=== PATIENT | female | born 1945 | race Caucasian/White ===

== ENCOUNTER 2018-08-28 14:35 | Inpatient (IN) ==
[2018-08-28] MEDS ORDERED: Dextrose Gel 15 GM/37.5 ML TUBE PO PRN ×2 (17:32)
[2018-08-28] MEDS ORDERED: *HR* Dextrose 50 % in Water (Syg) 50 ML SYRINGE IVP PRN (17:32)
[2018-08-28] MEDS ORDERED: D5% in Water 1,000 ML IVC PRN (17:32)
[2018-08-28] MEDS ORDERED: Mag Hydrox/Al Hydrox/Simeth 30 ML UDC PO PRN (17:32)
[2018-08-28] MEDS: Insulin LISPRO 300 UNITS/3 ML VIAL SQ SCH (20:22)
[2018-08-29 05:44] LABS: Basophils % 0.4 %; Eosinophils # 0.3 K/mcL (0.0-0.6); Eosinophils % 2.8 %; Hematocrit 30.8 % (35.3-44.9); Hemoglobin 9.7 g/dL (11.5-15.4); Immature Granulocytes % 1.8 % (0-4); Lymphocytes # 1.3 K/mcL (0.6-4.6); Lymphocytes % 14.4 %; Mean Corpuscular HGB Conc 31.5 g/dL (31.6-35.5); Mean Corpuscular Hemoglobin 30.1 pg (28.0-33.3); Mean Corpuscular Volume 95.7 fL (83.0-100.0); Mean Platelet Volume 9.1 fL (9.4-12.4); Monocytes # 0.6 K/mcL (0.0-1.3); Monocytes % 6.3 %; Neutrophils # 6.9 K/mcL (1.6-8.9); Nucleated Red Blood Cells 0.2 /100 WBC (0); Platelet Count 397 K/mcL (140-400); Red Blood Count 3.22 M/mcL (3.82-4.97); Segmented Neutrophils % 74.3 %
[2018-08-29 05:58] LABS: Alanine Aminotransferase 32 Units/L (7-52); Albumin 3.2 g/dL (3.5-5.7); Alkaline Phosphatase 67 Units/L (34-104); Aspartate Amino Transferase 33 Units/L (13-39); BUN/Creatinine Ratio 16 (6-26); Bilirubin,Total 0.6 mg/dL (0.3-1.0); Blood Urea Nitrogen 13 mg/dL (8-23); Calcium 8.8 mg/dL (8.6-10.3); Carbon Dioxide 28 mEq/L (23-29); Chloride 100 mEq/L (98-107); Globulin 3.1 g/dL (2.4-3.5); Glucose 169 mg/dL (70-105); Osmolality,Calculated 278 (280-300); Potassium 4.6 mEq/L (3.5-5.1); Sodium 132 mEq/L (136-145); Total Protein 6.3 g/dL (6.4-8.9); eGFR For Non-African Americans > 60 (> 60)
[2018-08-29] MEDS: *HR* Enoxaparin 40 MG/0.4 ML SYRINGE SQ SCH (06:00)
[2018-08-29] MEDS: Cyanocobalamin (B-12) 1,000 MCG TABLET PO SCH (08:07)
[2018-08-29] MEDS: Multivit/Ca/Min/Fe/FA 1 TAB TABLET PO SCH (08:07)
[2018-08-29] MEDS: *HR* Amiodarone 200 MG TABLET PO SCH (08:07)
[2018-08-29] MEDS: Loratadine 10 MG TABLET PO SCH (08:08)
[2018-08-29] MEDS: Furosemide 40 MG TABLET PO SCH (08:09)
[2018-08-29] MEDS: Aspirin 81 MG TAB.CHEW PO SCH (08:09)
[2018-08-29] MEDS: Insulin LISPRO 300 UNITS/3 ML VIAL SQ SCH ×4 (08:14→21:03)
--- NOTE | 2018-08-29 15:03 | Internal Med History&Physical ---
Addendum entered and electronically signed by Ad March MD 08/30/18 12:49: I have personally performed a face to face evaluation on this patient. I have r eviewed and agree with the care plan. History and Exam by me shows: The patient was evaluated by me yesterday but the note was not complete. This documentation is being completed today for that reason. Patient is here after CABG and has pain in her left upper back or lower chest or both. She is noting that she has had pain for a long time but this seems more intense and different. We talked about the possibility that her movement is changed because of her recent surgery and that we will make sure she does not have any pleural effusion, etc. This will be with chest x-ray today. She admits to 6 days of constipation and feels like she needs to move, soon. We talked about use of MiraLAX and/or other laxatives if no results. Past medical history, social history, family history reviewed with patient. Patient has no complaint of chest discomfort, dyspnea, orthopnea, breathing problems, palpitations, nausea or vomiting, constipation or diarrhea, other changes in bowel habits, heartburn, difficulty with urination, kidney problems or kidney stones, fevers chills or sweats, rash or itching, seizures, headache or lightheadedness, heat or cold intolerance, blood problems or anemia, or other new complaints, except as mentioned above. Review of systems is otherwise negative. Examination: (Except as mentioned above): General: In no apparent distress, alert and oriented 3. Head: Atraumatic and normocephalic. Eyes: Extraocular muscles are intact, pupils equal round and reactive to light and accommodation. Sclerae anicteric. Ears: External ears are normal to inspection and hearing is grossly normal. Nose: Patent without lesion noted. Mouth: No intraoral lesions seen. Dentition is unremarkable. Neck: Supple with trachea midline. There is no thyromegaly or adenopathy and carotids are 2+ without bruit heard. Respiratory: No use of accessory muscles. Lungs are clear throughout. Normal airflow. Cardiovascular: Regular rate and rhythm without murmur appreciated. Abdomen: Bowel sounds are normal. No hepatosplenomegaly masses or tenderness. Obese and therefore difficult to palpate deeply. Extremities: No cyanosis clubbing or edema. Neurological: A and O 3. Cranial nerves II through XII are intact. No focal deficits and no abnormal movements or postures. Skin: Warm and non-diaphoretic with no lesions noted. Breasts, pelvic and rectal: Not examined. I reviewed her care with nursing and we will adjust medications. She is to have rehabilitation strengthening with therapies as planned. Original Note: Date of Encounter: 08/29/18 Time of Encounter: 15:01 Assessment and Plan (1) S/P CABG x 2 Current visit: Yes Status: Acute PT and OT to eval and treat. Maintaining oxygen sets on room air. Denies shortness of breath or chest pain. Continue current medication. Follow up with pigment and lacquer mixer as scheduled. (2) Hyperlipidemia Current visit: Yes Status: Acute Continue Statin Qualifiers: Hyperlipidemia type: unspecified Qualified Code(s): E78.5 - Hyperlipidemia, unspecified (3) Hypertension Current visit: Yes Status: Acute Controlled with current medication. Monitor blood pressure. Qualifiers: Hypertension type: essential hypertension Qualified Code(s): I10 - Essential (primary) hypertension (4) Diabetes type 2, controlled Current visit: Yes Status: Acute Controlled with sliding scale insulin. Continue to monitor fingerstick blood sugar. Will adjust medicines as necessary. Qualifiers: Diabetes mellitus alf insulin use: with alf use Diabetes mellitus complication status: with unspecified complications Qualified Code(s): E11.8 - Type 2 diabetes mellitus with unspecified complications; Z79.4 - [facility] (current) use of insulin Internal Medicine - H&P: HPI Admitted From: Hospital to Hospital Transfer Plans for Post Hospital Care: Home History of present illness: Ms. Day is a 73 year old female admitted to rehab unit for deconditioning from [facility] status post CABG. patient denies shortness of breath, chest pain, nausea vomiting or diarrhea, fever chills. States appetite and hydration remain normal. Past medical history includes CVA, hypertension, hypercholesterolemia, diabetes type II, melanoma, STEMI, CAD and obesity. Past Med Surg Social Fam HX - Past Medical History Medical history: CVA, diabetes, hyperlipidemia, hypertension, other Additional medical history: [place] bone marrow transfusion - Past Surgical History Surgical History: appendectomy, cholecystectomy, coronary bypass (CABG) Additional surgical history: tubal 1973 - Social History Smoking Status: Never smoker Smokeless Tobacco Status: No Alcohol use: none Drug use: other - Family History Mother Adopted: Yes Living Status: Hx Family Reproductive Disorders: Yes (cancer) Internal Medicine - H&P: Meds Aspirin 81 mg PO DAILY 08/21/15 [History] Clopidogrel [Plavix] 75 mg PO DAILY 08/21/15 [History] Cyanocobalamin (B-12) [Vitamin B12] 500 mcg PO DAILY 08/21/15 [History] Lisinopril 2.5 mg PO DAILY 08/21/15 [History] Simvastatin [Zocor] 40 mg PO HS 08/21/15 [History] Acetaminophen [Tylenol] 325 mg PO Q6HR PRN 08/28/18 [History] Amiodarone [Cordarone] 200 mg PO DAILY 08/28/18 [History] Docusate [Colace] 100 mg PO BID 08/28/18 [History] Furosemide [Lasix] 40 mg PO DAILY 08/28/18 [History] Loratadine [Claritin] 10 mg PO DAILY 08/28/18 [History] Multivitamin [Daily Multiple Vitamin] 1 each PO DAILY 08/28/18 [History] Pantoprazole Sodium [Protonix] 40 mg PO DAILY 08/28/18 [History] Potassium Chloride [K-Tab ER] 20 meq PO DAILY 08/28/18 [History] Simvastatin [Zocor] 80 mg PO HS 08/28/18 [History] Metformin HCl [Glucophage] 1,000 mg PO BID 08/29/18 [History] SitaGLIPtin [Januvia] 100 mg PO DAILY 08/29/18 [History] Allergy/AdvReac Type Severity Reaction Status Date / Time acetaminophen [From Percocet] AdvReac See Verified 08/21/15 15:59 Comments codeine AdvReac See Verified 08/21/15 15:59 Comments oxycodone [From Percocet] AdvReac See Verified 08/21/15 15:59 Comments All Systems PM: A 10-system review of systems was performed and is negative for pertinent findings except as documented above in the HPI. - Constitutional Vitals: Temp Pulse Resp BP Pulse Ox 98.5 F 97 16 96/56 97 08/29/18 11:00 08/29/18 11:00 08/29/18 11:00 08/29/18 12:28 08/29/18 11:00 General appearance: Present: cooperative, A&O X 3, pleasant, no acute distress, answers questions appropriately - Head Head exam: Present: atraumatic, normocephalic - Eye Eye exam: Present: PERRL, conjuntiva pink, sclera anicteric Pupils: Present: PERRL - Neck Neck exam general surgery: Present: supple, trachea midline. Absent: lymphadenopathy - Respiratory Respiratory exam: Present: CTAB. Absent: accessory muscle use, rales, rhonchi, wheezes - Cardiovascular Cardiovascular exam: Present: RRR, +S1, +S2. Absent: diastolic murmur, gallop, rubs, systolic murmur - GI/Abdominal GI/Abdominal exam: Present: normal bowel sounds, soft, no peritoneal signs. Absent: distended, tenderness - Extremities Exam Extremities exam: Present: warm, radial pulses palpable and symmetrical. Absent: calf tenderness, cyanotic, pedal edema - Neurological Exam Neurological exam: Present: CN II-XII intact, oriented X3, no focal deficits. A bsent: pronater drift, facial droop, speech deficit - Skin Skin exam: Present: dry, intact Internal Med - H&P Results - Labs CBC & Chem 7: 08/29/18 05:30 08/29/18 05:30 Labs: Short CBC 08/29/18 Range/Units 05:30 WBC 9.3 (4.3-11.1) K/mcL Hgb 9.7 L (11.5-15.4) g/dL Hct 30.8 L (35.3-44.9) % Plt Count 397 (140-400) K/mcL Neutrophils # 6.9 (1.6-8.9) K/mcL BMP 08/29/18 05:30 Sodium 132 L Potassium 4.6 Chloride 100 Carbon Dioxide 28 BUN 13 Creatinine 0.81 Glucose 169 H Calcium 8.8 Liver Function 08/29/18 Range/Units 05:30 Total Bilirubin 0.6 (0.3-1.0) mg/dL AST 33 (13-39) Units/L ALT 32 (7-52) Units/L Alkaline Phosphatase 67 (34-104) Units/L Albumin 3.2 L (3.5-5.7) g/dL
[2018-08-29] MEDS: *HR* Metformin 500 MG TABLET PO SCH (16:53)
[2018-08-29] MEDS: Acetaminophen 325 MG TABLET PO PRN (21:03)
[2018-08-30] MEDS: Acetaminophen 325 MG TABLET PO PRN ×2 (06:15→19:37)
[2018-08-30] MEDS: *HR* Enoxaparin 40 MG/0.4 ML SYRINGE SQ SCH (06:15)
[2018-08-30] MEDS: Insulin LISPRO 300 UNITS/3 ML VIAL SQ SCH ×4 (08:13→20:41)
[2018-08-30] MEDS: Aspirin 81 MG TAB.CHEW PO SCH (08:14)
[2018-08-30] MEDS: *HR* Amiodarone 200 MG TABLET PO SCH (08:14)
[2018-08-30] MEDS: Multivit/Ca/Min/Fe/FA 1 TAB TABLET PO SCH (08:14)
[2018-08-30] MEDS: Furosemide 40 MG TABLET PO SCH (08:15)
[2018-08-30] MEDS: Cyanocobalamin (B-12) 1,000 MCG TABLET PO SCH (08:15)
[2018-08-30] MEDS: Loratadine 10 MG TABLET PO SCH (08:15)
[2018-08-30] MEDS: *HR* Metformin 500 MG TABLET PO SCH ×2 (08:15→17:30)
--- NOTE | 2018-08-30 14:21 | Internal Med Progress Note ---
Addendum entered and electronically signed by Ad March MD 08/30/18 15:23: Patient is busy with other providers and/or in therapies so I am unable to see her today. Original Note: Date of Encounter: 08/30/18 Time of Encounter: 14:18 - Assessment and plan (1) S/P CABG x 2 Current Visit: Yes Status: Acute Assessment and plan: Continue PT and OT. Follow up with cardiology as scheduled. (2) Hypertension Current Visit: Yes Status: Acute Assessment and plan: Controlled with current medication. Monitor blood pressure. Qualifiers: Hypertension type: essential hypertension Qualified Code(s): I10 - Essential (primary) hypertension (3) Diabetes type 2, controlled Current Visit: Yes Status: Acute Assessment and plan: controlled with current medication. Monitor fingerstick blood sugar. Will adjust medicines as necessary. Qualifiers: Diabetes mellitus fci insulin use: with terminal block assembler use Diabetes mellitus complication status: with unspecified complications Qualified Code(s): E11.8 - Type 2 diabetes mellitus with unspecified complications; Z79.4 - [facility] (current) use of insulin - Time Spent With Patient less than 15 minutes - Subjective Interval history: Patient participating well with therapy. Continues to transfer with standby to contact card assist. Following external precautions. Ambulating hundred and 50 feet with standby assist with 4 wheeled walker with therapy. Bowels did start to move today. Patient denies any discomfort, shortness of breath, chest pain, fever, chills, nausea vomiting or diarrhea. - Constitutional Vitals: Temp Pulse Resp BP Pulse Ox 98.4 F 93 15 122/77 97 08/30/18 07:20 08/30/18 07:20 08/30/18 07:20 08/30/18 07:20 08/30/18 07:20 General appearance: Present: cooperative, A&O X 3, pleasant, no acute distress, answers questions appropriately - Head Head exam: Present: atraumatic, normocephalic - Eye Eye exam: Present: PERRL, conjuntiva pink, sclera anicteric Pupils: Present: PERRL - Neck Neck exam general surgery: Present: supple, trachea midline. Absent: lymphadenopathy - Respiratory Respiratory exam: Present: CTAB. Absent: accessory muscle use, rales, rhonchi, wheezes - Cardiovascular Cardiovascular exam: Present: RRR, +S1, +S2. Absent: diastolic murmur, gallop, rubs, systolic murmur - GI/Abdominal GI/Abdominal exam: Present: normal bowel sounds, soft, no peritoneal signs. Absent: distended, tenderness - Extremities Exam Extremities exam: Present: warm, radial pulses palpable and symmetrical. Absent: calf tenderness, cyanotic, pedal edema - Neurological Exam Neurological exam: Present: CN II-XII intact, oriented X3, no focal deficits. Absent: pronater drift, facial droop, speech deficit - Skin Skin exam: Present: dry, intact Internal Medicine: Result - Labs CBC & Chem 7: 08/29/18 05:30 08/29/18 05:30 - Impressions Impressions Chest X-Ray 08/29/18 13:58 IMPRESSION: No acute cardiopulmonary process. D/ / Darryl Graham MD / Darryl Graham MD Interpreting Provider: Darryl Graham MD Consult Discharge Plan - Plan Referrals: Nii Landaverde [Other]
[2018-08-31] MEDS: Acetaminophen 325 MG TABLET PO PRN ×3 (04:51→21:38)
[2018-08-31] MEDS: *HR* Enoxaparin 40 MG/0.4 ML SYRINGE SQ SCH (04:52)
[2018-08-31] MEDS: Furosemide 40 MG TABLET PO SCH (08:40)
[2018-08-31] MEDS: *HR* Amiodarone 200 MG TABLET PO SCH (08:40)
[2018-08-31] MEDS: *HR* Metformin 500 MG TABLET PO SCH ×2 (08:40→17:22)
[2018-08-31] MEDS: Multivit/Ca/Min/Fe/FA 1 TAB TABLET PO SCH (08:40)
[2018-08-31] MEDS: Loratadine 10 MG TABLET PO SCH (08:40)
[2018-08-31] MEDS: Cyanocobalamin (B-12) 1,000 MCG TABLET PO SCH (08:41)
[2018-08-31] MEDS: Aspirin 81 MG TAB.CHEW PO SCH (08:41)
[2018-08-31] MEDS: Insulin LISPRO 300 UNITS/3 ML VIAL SQ SCH ×4 (10:41→21:39)
--- NOTE | 2018-08-31 13:10 | Internal Med Progress Note ---
Date of Encounter: 08/31/18 Time of Encounter: 13:08 - Assessment and plan (1) S/P CABG x 2 Current Visit: Yes Status: Acute Assessment and plan: Patient is doing well, postoperatively. (2) Hyperlipidemia Current Visit: Yes Status: Acute Assessment and plan: We will continue as planned. Qualifiers: Hyperlipidemia type: unspecified Qualified Code(s): E78.5 - Hyperlipidemia, unspecified (3) CVA (cerebral vascular accident) Current Visit: No Status: Acute Assessment and plan: No worsening of signs or symptoms. Qualifiers: CVA mechanism: unspecified Qualified Code(s): I63.9 - Cerebral infarction, unspecified - Subjective Interval history: Patient is without complaints. She is feeling much better because she moved her bowels 3 or 4 times yesterday. She denies other problems. Her breathing is fine. She has chest pain which is chest wall pain, per her description. She states that her back pain is slightly improved. Patient has no complaint of chest discomfort, dyspnea, orthopnea, palpitations, nausea or vomiting, constipation or diarrhea, other changes in bowel habits, difficulty with urination, rash or itching, or other new complaints, except as mentioned above. Review of systems is otherwise negative. I discussed management of her care with nursing staff. - Constitutional Vitals: Temp Pulse Resp BP Pulse Ox 98.0 F 92 16 111/66 96 08/31/18 07:13 08/31/18 07:13 08/31/18 07:13 08/31/18 07:13 08/31/18 07:13 Exam: Examination: (Except as mentioned above): General: In no apparent distress. Alert and oriented 3. Nondiaphoretic. Head: Atraumatic and normocephalic. Respiratory: No use of accessory muscles. Lungs are clear throughout. Normal airflow. Cardiovascular: Regular rate and rhythm without murmur appreciated. Abdomen: Bowel sounds are normal. No hepatosplenomegaly mass or tenderness appreciated. Obese and therefore difficult to palpate deeply. Extremities: No cyanosis clubbing or edema. Skin: Warm and non-diaphoretic with no new lesions noted. Wounds at both lower extremities. Intact, without erythema or signs of cellulitis. The chest tube drain sites looked good, as well. Internal Medicine: Result - Labs CBC & Chem 7: 08/29/18 05:30 08/29/18 05:30 Consult Discharge Plan - Plan Referrals: Nii Landaverde [Other]
[2018-09-01] MEDS: *HR* Enoxaparin 40 MG/0.4 ML SYRINGE SQ SCH (05:32)
[2018-09-01] MEDS: Acetaminophen 325 MG TABLET PO PRN ×2 (05:33→17:28)
[2018-09-01] MEDS: Insulin LISPRO 300 UNITS/3 ML VIAL SQ SCH ×4 (08:25→21:51)
[2018-09-01] MEDS: Aspirin 81 MG TAB.CHEW PO SCH (08:26)
[2018-09-01] MEDS: *HR* Metformin 500 MG TABLET PO SCH ×2 (08:26→17:28)
[2018-09-01] MEDS: Loratadine 10 MG TABLET PO SCH (08:26)
[2018-09-01] MEDS: Furosemide 40 MG TABLET PO SCH (08:26)
[2018-09-01] MEDS: *HR* Amiodarone 200 MG TABLET PO SCH (08:26)
[2018-09-01] MEDS: Multivit/Ca/Min/Fe/FA 1 TAB TABLET PO SCH (08:26)
[2018-09-01] MEDS: Cyanocobalamin (B-12) 1,000 MCG TABLET PO SCH (08:26)
--- NOTE | 2018-09-01 09:54 | Internal Med Progress Note ---
Addendum entered and electronically signed by Ad March MD 09/01/18 13:46: I have personally performed a face to face evaluation on this patient. I have r eviewed and agree with the care plan. History and Exam by me shows: Patient is feeling somewhat tired. However, she is concerned about her phlegm and nausea associated with it. We have prescribed Zofran and asked her to keep us informed as she is feeling better now. Discussed care with other providers and/or nursing. Patient has no complaint of chest discomfort, dyspnea, orthopnea, palpitations, nausea or vomiting, constipation or diarrhea, other changes in bowel habits, difficulty with urination, rash or itching, or other new complaints, except as mentioned above. Review of systems is otherwise negative. Examination: (Except as mentioned above): General: In no apparent distress. Alert and oriented 3. Nondiaphoretic. Head: Atraumatic and normocephalic. Respiratory: No use of accessory muscles. Lungs are clear throughout. Normal airflow. Cardiovascular: Regular rate and rhythm without murmur appreciated. Abdomen: Bowel sounds are normal. No hepatosplenomegaly mass or tenderness appreciated. Obese and therefore difficult to palpate deeply. Extremities: No cyanosis clubbing or edema. Skin: Warm and non-diaphoretic with no new lesions noted. Original Note: Date of Encounter: 09/01/18 Time of Encounter: 09:52 - Assessment and plan (1) S/P CABG x 2 Current Visit: Yes Status: Acute Assessment and plan: No acute issues. Patient's surgical incisions appear healthy and intact, with the exception of her left substernal chest tube insertion site which has a scant amount of serous drainage present. Patient states pain is well-controlled with current medications. Denies any dyspnea or productive cough. Dissipated physical therapy and progressing well. (2) CVA (cerebral vascular accident) Current Visit: No Status: Chronic Assessment and plan: No acute issues. Patient shows currently no residual from CVA. We will continue to monitor through exam Qualifiers: CVA mechanism: unspecified Qualified Code(s): I63.9 - Cerebral infarction, unspecified (3) Hypertension Current Visit: Yes Status: Chronic Assessment and plan: Vital signs are stable. We will continue patient on current medications. Qualifiers: Hypertension type: essential hypertension Qualified Code(s): I10 - Essential (primary) hypertension (4) Diabetes type 2, controlled Current Visit: Yes Status: Chronic Assessment and plan: No acute issues. Patient's glucose has been fairly well-controlled but continues to remain between 150-170 on fingerstick readings. We will continue with current coverage Qualifiers: Diabetes mellitus moth exterminator insulin use: with moth exterminator use Diabetes mellitus complication status: with unspecified complications Qualified Code(s): E11.8 - Type 2 diabetes mellitus with unspecified complications; Z79.4 - terminal computer operator (current) use of insulin - Time Spent With Patient less than 15 minutes - Subjective Interval history: Patient appears relaxed and currently denies any discomforts or shortness of breath. Patient states that physical therapy has been progressing well. Patient states that the area on her right medial leg, which she was experiencing a pinching pain has resolved overnight. No obvious injury or lesion noted to that leg on exam. Patient no issues throughout the night. Patient states that her current pain is well tolerated with current medications. - Constitutional Vitals: Temp Pulse Resp BP Pulse Ox 98.3 F 91 16 104/67 94 09/01/18 07:23 09/01/18 07:23 09/01/18 07:23 09/01/18 07:23 09/01/18 07:23 General appearance: Present: cooperative, A&O X 3, pleasant, no acute distress, answers questions appropriately - Head Head exam: Present: atraumatic, normocephalic - Eye Eye exam: Present: PERRL, conjuntiva pink, sclera anicteric Pupils: Present: PERRL - Neck Neck exam general surgery: Present: supple, trachea midline. Absent: lymphadeno jarett - Respiratory Respiratory exam: Present: CTAB. Absent: accessory muscle use, rales, rhonchi, wheezes Additional comments: Lungs are clear throughout upper byers with diminished bases. Respiratory effort appears relaxed. No productive cough noted. - Cardiovascular Cardiovascular exam: Present: RRR, +S1, +S2. Absent: diastolic murmur, gallop, rubs, systolic murmur - GI/Abdominal GI/Abdominal exam: Present: normal bowel sounds, soft, no peritoneal signs. Absent: distended, tenderness - Extremities Exam Extremities exam: Present: warm, radial pulses palpable and symmetrical. Absent: calf tenderness, cyanotic, pedal edema Additional comments: Left leg donor incisions appear healthy and intact. - Neurological Exam Neurological exam: Present: CN II-XII intact, oriented X3, no focal deficits. Absent: pronater drift, facial droop, speech deficit - Skin Skin exam: Present: dry, intact Additional comments: Midline chest surgical incision appears healthy and intact. Patient with dressing to previous chest tube sites, which remained intact, although left insertion site with a scant amount of serous drainage noted no erythema Internal Medicine: Result - Labs CBC & Chem 7: 08/29/18 05:30 08/29/18 05:30 Consult Discharge Plan - Plan Referrals: Nii Landaverde [Other]
[2018-09-02] MEDS: Acetaminophen 325 MG TABLET PO PRN ×2 (05:56→20:40)
[2018-09-02] MEDS: *HR* Enoxaparin 40 MG/0.4 ML SYRINGE SQ SCH (05:56)
[2018-09-02] MEDS: Insulin LISPRO 300 UNITS/3 ML VIAL SQ SCH ×4 (08:41→20:40)
[2018-09-02] MEDS: *HR* Metformin 500 MG TABLET PO SCH ×2 (08:42→17:12)
[2018-09-02] MEDS: Loratadine 10 MG TABLET PO SCH (08:42)
[2018-09-02] MEDS: Multivit/Ca/Min/Fe/FA 1 TAB TABLET PO SCH (08:42)
[2018-09-02] MEDS: Furosemide 40 MG TABLET PO SCH (08:42)
[2018-09-02] MEDS: Aspirin 81 MG TAB.CHEW PO SCH (08:42)
[2018-09-02] MEDS: Cyanocobalamin (B-12) 1,000 MCG TABLET PO SCH (08:43)
[2018-09-02] MEDS: *HR* Amiodarone 200 MG TABLET PO SCH (08:43)
--- NOTE | 2018-09-02 17:17 | Internal Med Progress Note ---
Date of Encounter: 09/02/18 Time of Encounter: 17:00 - Assessment and plan (1) CVA (cerebral vascular accident) Current Visit: No Status: Chronic Assessment and plan: No acute issues. Continue working with therapists. Qualifiers: CVA mechanism: unspecified Qualified Code(s): I63.9 - Cerebral infarction, unspecified (2) S/P CABG x 2 Current Visit: Yes Status: Acute Assessment and plan: No acute issues. Patient states pain is well-controlled with current medications. Continue working with therapists. (3) Hypertension Current Visit: Yes Status: Chronic Assessment and plan: Continue current regimen. Qualifiers: Hypertension type: essential hypertension Qualified Code(s): I10 - Essential (primary) hypertension (4) Diabetes type 2, controlled Current Visit: Yes Status: Chronic Assessment and plan: No acute issues. Patient's glucose has been fairly well-controlled but continues to remain between 150-170 on fingerstick readings. We will continue with current coverage Qualifiers: Diabetes mellitus jail insulin use: with computer terminal operator use Diabetes mellitus complication status: with unspecified complications Qualified Code(s): E11.8 - Type 2 diabetes mellitus with unspecified complications; Z79.4 - terminal worker (current) use of insulin - Time Spent With Patient less than 15 minutes - Subjective Interval history: Working with therapists, no real concern right now. However, did have burping and discomfort with lunch. - Constitutional Vitals: Temp Pulse Resp BP Pulse Ox 98.2 F 83 16 107/57 96 09/02/18 07:02 09/02/18 13:12 09/02/18 13:12 09/02/18 13:12 09/02/18 13:12 General appearance: Present: cooperative, A&O X 3, pleasant, no acute distress, answers questions appropriately Exam: Gen: A&Ox3, NAD. HEENT: NCAT. Neck: No palpable lymphadenopathy or thyromegaly. CV: RRR, S1S2. 2/6, systolic murmur. Capillary refill < 2 seconds. Pulm: CTAB. Abd: (+)BS. NDNT. Neuro: Generalized weakness, otherwise non-focal. Skin: No rash. Ext: No pitting edema. Internal Medicine: Result - Labs CBC & Chem 7: 08/29/18 05:30 08/29/18 05:30 Consult Discharge Plan - Plan Referrals: Nii Landaverde [Other]
[2018-09-03] MEDS: *HR* Enoxaparin 40 MG/0.4 ML SYRINGE SQ SCH (06:12)
[2018-09-03] MEDS: Insulin LISPRO 300 UNITS/3 ML VIAL SQ SCH ×4 (08:35→20:12)
[2018-09-03] MEDS: Cyanocobalamin (B-12) 1,000 MCG TABLET PO SCH (08:36)
[2018-09-03] MEDS: Aspirin 81 MG TAB.CHEW PO SCH (08:36)
[2018-09-03] MEDS: Multivit/Ca/Min/Fe/FA 1 TAB TABLET PO SCH (08:36)
[2018-09-03] MEDS: *HR* Metformin 500 MG TABLET PO SCH ×2 (08:36→16:33)
[2018-09-03] MEDS: *HR* Amiodarone 200 MG TABLET PO SCH (08:36)
[2018-09-03] MEDS: Loratadine 10 MG TABLET PO SCH (08:37)
[2018-09-03] MEDS: Furosemide 40 MG TABLET PO SCH (08:37)
--- NOTE | 2018-09-03 13:16 | Internal Med Progress Note ---
Date of Encounter: 09/03/18 Time of Encounter: 12:40 - Assessment and plan (1) CVA (cerebral vascular accident) Current Visit: No Status: Chronic Assessment and plan: No acute issues. Continue working with therapists. Qualifiers: CVA mechanism: unspecified Qualified Code(s): I63.9 - Cerebral infarction, unspecified (2) S/P CABG x 2 Current Visit: Yes Status: Acute Assessment and plan: No acute issues. Patient states pain is well-controlled with current medications. Continue working with therapists. (3) Hypertension Current Visit: Yes Status: Chronic Assessment and plan: Continue current regimen. Qualifiers: Hypertension type: essential hypertension Qualified Code(s): I10 - Essential (primary) hypertension (4) Diabetes type 2, controlled Current Visit: Yes Status: Chronic Assessment and plan: No acute issues. Patient's glucose has been fairly well-controlled but continues to remain between 150-170 on fingerstick readings. We will continue with current coverage Qualifiers: Diabetes mellitus intermediate insulin use: with ostomy care nurse use Diabetes mellitus complication status: with unspecified complications Qualified Code(s): E11.8 - Type 2 diabetes mellitus with unspecified complications; Z79.4 - lithographic photographer apprentice (current) use of insulin - Time Spent With Patient less than 15 minutes - Subjective Interval history: Working with therapists, no concern at this moment. - Constitutional Vitals: Temp Pulse Resp BP Pulse Ox 98.2 F 85 18 107/68 94 09/03/18 07:19 09/03/18 07:19 09/03/18 07:19 09/03/18 07:19 09/03/18 07:19 General appearance: Present: cooperative, A&O X 3, pleasant, no acute distress, answers questions appropriately Exam: Gen: A&Ox3, NAD. HEENT: NCAT. Neck: No palpable lymphadenopathy or thyromegaly. CV: RRR, S1S2. 2/6, systolic murmur. Capillary refill < 2 seconds. Pulm: CTAB. Abd: (+)BS. NDNT. Neuro: Generalized weakness, otherwise non-focal. Skin: No rash. Ext: No pitting edema. Internal Medicine: Result - Labs CBC & Chem 7: 08/29/18 05:30 08/29/18 05:30 Consult Discharge Plan - Plan Referrals: Nii Landaverde [Other]
[2018-09-03] MEDS: Acetaminophen 325 MG TABLET PO PRN (20:12)
[2018-09-04] MEDS: Acetaminophen 325 MG TABLET PO PRN ×3 (05:31→20:34)
[2018-09-04] MEDS: *HR* Enoxaparin 40 MG/0.4 ML SYRINGE SQ SCH (05:32)
[2018-09-04 06:54] LABS: BUN/Creatinine Ratio 16 (6-26); Blood Urea Nitrogen 12 mg/dL (8-23); Calcium 9.3 mg/dL (8.6-10.3); Carbon Dioxide 29 mEq/L (23-29); Chloride 100 mEq/L (98-107); Glucose 174 mg/dL (70-105); Magnesium 1.5 mg/dL (1.6-2.6); Osmolality,Calculated 288 (280-300); Potassium 3.5 mEq/L (3.5-5.1); Sodium 137 mEq/L (136-145); eGFR For Non-African Americans > 60 (> 60)
[2018-09-04 07:37] LABS: Basophils % 0.6 %; Eosinophils # 0.3 K/mcL (0.0-0.6); Eosinophils % 5.3 %; Hematocrit 30.2 % (35.3-44.9); Hemoglobin 9.6 g/dL (11.5-15.4); Immature Granulocytes % 0.6 % (0-4); Lymphocytes # 1.2 K/mcL (0.6-4.6); Lymphocytes % 25.2 %; Mean Corpuscular HGB Conc 31.8 g/dL (31.6-35.5); Mean Corpuscular Volume 94.4 fL (83.0-100.0); Mean Platelet Volume 9.2 fL (9.4-12.4); Monocytes # 0.5 K/mcL (0.0-1.3); Monocytes % 9.6 %; Neutrophils # 2.7 K/mcL (1.6-8.9); Platelet Count 415 K/mcL (140-400); Red Cell Distribution Width 15.7 % (11.5-14.5); Segmented Neutrophils % 58.7 %
[2018-09-04] MEDS: Insulin LISPRO 300 UNITS/3 ML VIAL SQ SCH ×4 (08:29→20:32)
[2018-09-04] MEDS: Furosemide 40 MG TABLET PO SCH (08:30)
[2018-09-04] MEDS: Aspirin 81 MG TAB.CHEW PO SCH (08:30)
[2018-09-04] MEDS: *HR* Amiodarone 200 MG TABLET PO SCH (08:30)
[2018-09-04] MEDS: Multivit/Ca/Min/Fe/FA 1 TAB TABLET PO SCH (08:30)
[2018-09-04] MEDS: *HR* Metformin 500 MG TABLET PO SCH ×2 (08:30→17:13)
[2018-09-04] MEDS: Loratadine 10 MG TABLET PO SCH (08:30)
[2018-09-04] MEDS: Cyanocobalamin (B-12) 1,000 MCG TABLET PO SCH (08:31)
--- NOTE | 2018-09-04 12:04 | Internal Med Progress Note ---
Date of Encounter: 09/04/18 Time of Encounter: 12:02 - Assessment and plan (1) S/P CABG x 2 Current Visit: Yes Status: Acute Assessment and plan: Continue PT and OT. Follow up with cardiology as scheduled. Following sternal precautions (2) Hypertension Current Visit: Yes Status: Chronic Assessment and plan: Controlled with current medication. Monitor blood pressure. Qualifiers: Hypertension type: essential hypertension Qualified Code(s): I10 - Essential (primary) hypertension (3) Diabetes type 2, controlled Current Visit: Yes Status: Chronic Assessment and plan: controlled with current medication. Monitor fingerstick blood sugar. Will adjust medicines as necessary. Qualifiers: Diabetes mellitus intermediate teacher insulin use: with skilled nursing use Diabetes mellitus complication status: with unspecified complications Qualified Code(s): E11.8 - Type 2 diabetes mellitus with unspecified complications; Z79.4 - petroleum terminal plant operator (current) use of insulin - Time Spent With Patient less than 15 minutes - Subjective Interval history: Patient participating well with therapy. Bowels moving as normal. Patient denies any discomfort, shortness of breath, chest pain, fever, chills, nausea vomiting or diarrhea. - Constitutional Vitals: Temp Pulse Resp BP Pulse Ox 98.2 F 87 18 109/69 97 09/04/18 08:32 09/04/18 08:32 09/04/18 08:32 09/04/18 08:32 09/04/18 08:32 General appearance: Present: cooperative, A&O X 3, pleasant, no acute distress, answers questions appropriately - Head Head exam: Present: atraumatic, normocephalic - Eye Eye exam: Present: PERRL, conjuntiva pink, sclera anicteric Pupils: Present: PERRL - Neck Neck exam general surgery: Present: supple, trachea midline. Absent: lymphade nopathy - Respiratory Respiratory exam: Present: CTAB. Absent: accessory muscle use, rales, rhonchi, wheezes - Cardiovascular Cardiovascular exam: Present: RRR, +S1, +S2. Absent: diastolic murmur, gallop, rubs, systolic murmur - GI/Abdominal GI/Abdominal exam: Present: normal bowel sounds, soft, no peritoneal signs. Absent: distended, tenderness Additional comments: Upper abdominal incisions healing, no drainage. - Extremities Exam Extremities exam: Present: warm, radial pulses palpable and symmetrical. Abse nt: calf tenderness, cyanotic, pedal edema - Neurological Exam Neurological exam: Present: CN II-XII intact, oriented X3, no focal deficits. Absent: pronater drift, facial droop, speech deficit - Skin Skin exam: Present: dry, intact Internal Medicine: Result - Labs CBC & Chem 7: 09/04/18 06:30 09/04/18 06:30 Labs: Short CBC 09/04/18 Range/Units 06:30 WBC 4.7 (4.3-11.1) K/mcL Hgb 9.6 L (11.5-15.4) g/dL Hct 30.2 L (35.3-44.9) % Plt Count 415 H (140-400) K/mcL Neutrophils # 2.7 (1.6-8.9) K/mcL BMP 09/04/18 06:30 Sodium 137 Potassium 3.5 Chloride 100 Carbon Dioxide 29 BUN 12 Creatinine 0.77 Glucose 174 H Calcium 9.3 Consult Discharge Plan - Plan Referrals: Nii Landaverde [Other]
[2018-09-05] MEDS: Acetaminophen 325 MG TABLET PO PRN ×2 (05:59→12:15)
[2018-09-05] MEDS: *HR* Enoxaparin 40 MG/0.4 ML SYRINGE SQ SCH (05:59)
[2018-09-05 07:55] VITALS: BP 110/67
[2018-09-05] MEDS: Insulin LISPRO 300 UNITS/3 ML VIAL SQ SCH (09:02)
[2018-09-05] MEDS: *HR* Metformin 500 MG TABLET PO SCH (09:03)
[2018-09-05] MEDS: Multivit/Ca/Min/Fe/FA 1 TAB TABLET PO SCH (09:03)
[2018-09-05] MEDS: Furosemide 40 MG TABLET PO SCH (09:03)
[2018-09-05] MEDS: Loratadine 10 MG TABLET PO SCH (09:04)
[2018-09-05] MEDS: Aspirin 81 MG TAB.CHEW PO SCH (09:04)
[2018-09-05] MEDS: *HR* Amiodarone 200 MG TABLET PO SCH (09:04)
[2018-09-05] MEDS: Cyanocobalamin (B-12) 1,000 MCG TABLET PO SCH (09:04)
--- NOTE | 2018-09-05 11:47 | Discharge Summary ---
Addendum entered and electronically signed by Ad March MD 09/05/18 12:58: I have personally performed a face to face evaluation on this patient. I have r eviewed and agree with the care plan. History and Exam by me shows: Patient is without complaint. She is noting that she has had essentially no pain. Her bowels are moving well. She has no other acute issues. Medications have been prescribed and interactions evaluated by Jose Quintana CNP. Questions of patient and daughters were answered. Discussed care with other providers and/or nursing. Patient has no complaint of chest discomfort, dyspnea, orthopnea, palpitations, nausea or vomiting, constipation or diarrhea, other changes in bowel habits, difficulty with urination, rash or itching, or other new complaints, except as mentioned above. Review of systems is otherwise negative. Examination: (Except as mentioned above): General: In no apparent distress. Alert and oriented 3. Nondiaphoretic. Head: Atraumatic and normocephalic. Respiratory: No use of accessory muscles. Lungs are clear throughout. Normal airflow. Cardiovascular: Regular rate and rhythm without murmur appreciated. Abdomen: Bowel sounds are normal. No hepatosplenomegaly mass or tenderness appreciated. Obese and therefore difficult to palpate deeply. Patient is examined upright in chair and this also limits exam. Extremities: No cyanosis clubbing or edema. Skin: Warm and non-diaphoretic with no new lesions noted. Wounds look good without signs of infection at lower extremities, upper abdomen, sternotomy, etc. Original Note: Date of Encounter: 09/05/18 Time of Encounter: 11:45 - Discharge Diagnosis (1) S/P CABG x 2 Priority: Primary Status: Acute Comments: Patient was admitted to this facility for rehabilitation due to weakness secondary to her bypass surgery. Patient participated in physical therapy and progressed well. Surgical incision to chest and left leg both appear healthy and intact. Denies any dyspnea or chest discomforts. Pain is been well- tolerated with minimal use of oral medications. Patient is being discharged to home oral continue her physical therapy as an outpatient. Patient is to follow- up with her PCP and cardiovascular surgeon after discharge. Prescriptions were provided for all of patient's new medications and her home medications. (2) CVA (cerebral vascular accident) Priority: Secondary Status: Chronic Comments: No acute issues. Patient shows minimal residual. His pain physical therapy and progressed well. We will continue with current medications and follow-up with PCP after discharge. Qualifiers: CVA mechanism: unspecified Qualified Code(s): I63.9 - Cerebral infarction, unspecified (3) Hypertension Priority: Secondary Status: Chronic Comments: Vital signs remained stable during her stay at this facility. Patient is to continue with home medications after discharge. Qualifiers: Hypertension type: essential hypertension Qualified Code(s): I10 - Essential (primary) hypertension (4) Diabetes type 2, controlled Priority: Secondary Status: Chronic Comments: No acute issues during her stay. Patient's glucose has been well managed with most recent fingersticks less than 170. His current medications at discharge Qualifiers: Diabetes mellitus buttermaker continuous churn insulin use: with fdc use Diabetes mellitus complication status: with unspecified complications Qualified Code(s): E11.8 - Type 2 diabetes mellitus with unspecified complications; Z79.4 - longterm (current) use of insulin Hospital course: Ms. Day is a 73 year old female, who was admitted to this facility for rehabilitation following her bypass surgery at [facility]. Patient had an uneventful recovery and uneventful stay while at this facility. Patient participated in physical therapy and progressed well. Her surgical incision m idline chest and to the donor sites of the left leg all appear healthy and intact. Vital signs remained stable during his stay. Glucose was well managed and remained less than 170 on most fingersticks. Pain has been well managed with patient taking a minimal amount of pain medication. Patient will be discharged to home and continue her physical therapy as outpatient. Patient is to follow-up with cardiovascular surgeon and PCP. Prescriptions for all of patient's home medications and new medications were provided at time of discharge. Discharge discussed with: patient Time spent discussing smoking cessation with patient: 3 to 10 minutes - Time Spent with Patient Total time spent providing and/or coordinating discharge services: Time spent: Less than 30 minutes - Discharge Medications Prescriptions: No Action Simvastatin [Zocor] 40 mg PO HS Lisinopril 2.5 mg PO DAILY Cyanocobalamin (B-12) [Vitamin B12] 500 mcg PO DAILY Clopidogrel [Plavix] 75 mg PO DAILY Aspirin 81 mg PO DAILY Simvastatin [Zocor] 80 mg PO HS Loratadine [Claritin] 10 mg PO DAILY Potassium Chloride [K-Tab ER] 20 meq PO DAILY Multivitamin [Daily Multiple Vitamin] 1 each PO DAILY Furosemide [Lasix] 40 mg PO DAILY Docusate [Colace] 100 mg PO BID Amiodarone [Cordarone] 200 mg PO DAILY Acetaminophen [Tylenol] 325 mg PO Q6HR PRN PRN Reason: Pain Pantoprazole Sodium [Protonix] 40 mg PO DAILY Metformin HCl [Glucophage] 1,000 mg PO BID SitaGLIPtin [Januvia] 100 mg PO DAILY Home Medications: Aspirin 81 mg PO DAILY 08/21/15 [History] Clopidogrel [Plavix] 75 mg PO DAILY 08/21/15 [History] Cyanocobalamin (B-12) [Vitamin B12] 500 mcg PO DAILY 08/21/15 [History] Lisinopril 2.5 mg PO DAILY 08/21/15 [History] Simvastatin [Zocor] 40 mg PO HS 08/21/15 [History] Acetaminophen [Tylenol] 325 mg PO Q6HR PRN 08/28/18 [History] Amiodarone [Cordarone] 200 mg PO DAILY 08/28/18 [History] Docusate [Colace] 100 mg PO BID 08/28/18 [History] Furosemide [Lasix] 40 mg PO DAILY 08/28/18 [History] Loratadine [Claritin] 10 mg PO DAILY 08/28/18 [History] Multivitamin [Daily Multiple Vitamin] 1 each PO DAILY 08/28/18 [History] Pantoprazole Sodium [Protonix] 40 mg PO DAILY 08/28/18 [History] Potassium Chloride [K-Tab ER] 20 meq PO DAILY 08/28/18 [History] Simvastatin [Zocor] 80 mg PO HS 08/28/18 [History] Metformin HCl [Glucophage] 1,000 mg PO BID 08/29/18 [History] SitaGLIPtin [Januvia] 100 mg PO DAILY 08/29/18 [History] Allergies/Adverse Reactions: Allergy/AdvReac Type Severity Reaction Status Date / Time acetaminophen [From Percocet] AdvReac See Verified 08/21/15 15:59 Comments codeine AdvReac See Verified 08/21/15 15:59 Comments oxycodone [From Percocet] AdvReac See Verified 08/21/15 15:59 Comments Date of admission: 08/28/18 17:36 Primary care physician: Nii Landaverde Consults: 03/18/19 17:28 Consult to Occupational Therapy [CONS] Routine Comment: Evaluate, develop and implement POC Reason for Consult: dru Does patient have active BEDREST order?: No Is patient medically & hemodynamically stable?: Yes Consult to Physical Medicine/Rehab [CONS] Routine Reason for Consult: eval Call Completed: Yes Consult to Physical Therapy [CONS] Routine Comment: Evaluate, develop and implement POC Reason for Consult: eval Does patient have active BEDREST order?: No Is patient medically & hemodynamically stable?: Yes Consult to Recreational Therapy [CONS] Routine Comment: Evaluate, develop and implement POC Consult to Movie Theater Manager [CONS] Routine Reason for SW Consult: eval Discharging clinician: Ad March - Constitutional Vitals: Temp Pulse Resp BP Pulse Ox 98.5 F 70 15 110/67 96 09/05/18 07:53 09/05/18 07:53 09/05/18 07:53 09/05/18 07:53 09/05/18 07:53 General appearance: Present: cooperative, A&O X 3, pleasant, no acute distress, answers questions appropriately - Head Head exam: Present: atraumatic, normocephalic - Eye Eye exam: Present: PERRL, conjuntiva pink, sclera anicteric Pupils: Present: PERRL - Neck Neck exam general surgery: Present: supple, trachea midline. Absent: lymphadenopathy - Respiratory Respiratory exam: Present: CTAB. Absent: accessory muscle use, rales, rhonchi, wheezes - Cardiovascular Cardiovascular exam: Present: RRR, +S1, +S2. Absent: diastolic murmur, gallop, rubs, systolic murmur - GI/Abdominal GI/Abdominal exam: Present: normal bowel sounds, soft, no peritoneal signs. Absent: distended, tenderness - Extremities Exam Extremities exam: Present: warm, radial pulses palpable and symmetrical. Absent: calf tenderness, cyanotic, pedal edema - Neurological Exam Neurological exam: Present: CN II-XII intact, oriented X3, no focal deficits. Absent: pronater drift, facial droop, speech deficit - Skin Skin exam: Present: dry, intact Additional comments: Chest incision appears healthy and intact. Patient with 2 donor sites to the left leg which remained intact and healthy in appearance. - Patient Status Disposition: Home, Self-Care Condition: Good Functional capacity at discharge: uses cane/walker Overall status at discharge: patient is progressing back to baseline - Discharge Instructions Instructions: Coronary Artery Bypass Graft (DC), Chronic Hypertension (DC) Follow Up With: Nii Landaverde [Other] (Please follow up in one to two weeks.) Kosta Knutson [Other] - 10/03/18 11:00 am Calin Pride [Non-Partnered Physician] - 09/19/18 11:15 am Additional Instructions: Please go for Post Op Chest X-ray on 09/19/2018 at 10:15AM [address] [place] [id number] - Diet and Activity Activity: ambulate only with your walker, as per physical therapy Diet: low fat, low cholesterol, low salt diet
== END 2018-09-05 12:40 | disposition home or self-care (01) | DRG 950 ==
LOC: INPGRE 17:36